=== PATIENT | female | born 1935 | race Caucasian/White ===

== ENCOUNTER 2016-08-27 01:55 | Inpatient (IN) | payer MEDICARE ==
[~2016-08-27] VITALS: Ht 167.6 cm; Wt 66.7 kg
--- NOTE | 2016-08-28 01:26 | ER ---
ADMIT: 08/27/2016 RM/LOC: 503 [facility] MR#: [id number] [address] [address] JANELL SANDY [address] [place] [address] Emergency Room Report SEX: F AGE: 80 : 1935 DATE: 08/27/2016 TIME: 0155 hours. Please refer to my T-sheet for complete H and P. HISTORY OF PRESENT ILLNESS: Briefly, the patient is a 80-year-old, seen over in [place] for fall, left hip fracture. She apparently has a history of severe dementia. Her takes care of her. She fell earlier in the day, he put her in bed, then he could not get her to put any weight on her bed. She is nonverbal due to her dementia. PHYSICAL EXAMINATION: VITAL SIGNS: Her blood pressure is 164/96, pulse 95, respirations 18, temp 99.5, sat 95%. GENERAL: No acute distress. HEENT: Grossly normal. LUNGS: Clear. HEART: Regular. ABDOMEN: Soft. EXTREMITIES: Her left leg is shortened and externally rotated. Pain with any range of motion. NEURO: She does not answer any questions. Smiles. EMERGENCY DEPARTMENT COURSE: Her CBC was normal. Chemistries normal except sodium 147, glucose 134. Coags were normal. Chest x-ray showed no acute findings. Her pelvis and left hip revealed a femoral neck fracture. EKG is sinus rhythm, rate 93, no changes. I did titrate pain medications as needed. I talked to Dr. Tinoco and Dr. Jaimes. We will admit to the hospital. ASSESSMENT: 1. Left femoral neck fracture. 2. Fall. 3. Severe dementia. PLAN: Admit to the hospital. Stef Pierre MD/ messi JOB #: [id number] CC: Ibrahima Tinoco MD, Attending Physician JOSE MIGUEL Alvarado, Family Physician
--- NOTE | 2016-08-29 16:58 | HP ---
ADMIT: 08/27/2016 RM/LOC: 503 [facility] MR#: [id number] [id number] [address] JANELL SANDY [address] [place] [address] History and Physical SEX: F AGE: 80 : 1935 DATE OF SERVICE: CHIEF COMPLAINT: Fall with hip pain. HISTORY OF PRESENT ILLNESS: This is a 80-year-old female. She has a history of dementia. She presented after a fall yesterday morning. Her helped her get into bed, but then later in the day, she was unable to get out of bed also because of her severe pain, so she was transported to the emergency room in [place]. There x-rays confirmed a left femoral neck fracture and she was set up for transfer to [place] for surgical intervention. She has a past medical history for dementia, PEs in the past. Currently, not on any anticoagulation. She has had urinary incontinence in the past as well. She can really give me no history. Her daughters and POA are in the room and we discussed her care. They have some concerns about whether to go through surgery or not given her overall dementia, but given she has severe pain with any type of movement, we discussed I think it is reasonable clearly from a pain control perspective. She denies any specific complaints to me right now. FAMILY HISTORY: Reviewed but noncontributory. SOCIAL HISTORY: She does not drink. She does not smoke. She is . REVIEW OF SYSTEMS: Other complete review of systems were obtained and negative except as above. PHYSICAL EXAMINATION: VITAL SIGNS: Blood pressures were 170s/90s, oxygen saturation 93% on 1 L oxygen by nasal cannula, heart rate 93, respirations 14. GENERAL: This is a well-appearing, 80-year-old female. She is in no apparent distress. She is alert, not oriented. HEENT: Pupils are equal, round, and reactive to light and accommodation. Her extraocular muscles are intact. Her throat is clear. NECK: Supple. Trachea midline. Thyroid not palpable. HEART: Regular rate and rhythm. LUNGS: Clear to auscultation bilaterally. ABDOMEN: Soft without any tenderness. EXTREMITIES: Lower extremity; left lower extremity is shortened and externally rotated. She has normal sensation in all extremities. Peripheral pulses and radial pulses are normal. LABORATORY AND X-RAY DATA: X-ray again showed a left femoral neck fracture. She had a urine that showed positive nitrites, and leukocyte esterase, and white cells. ASSESSMENT: ADMIT: 08/27/2016 RM/LOC: 503 [facility] MR#: [id number] [id number] [address] JANELL SANDY [address] [place] [address] History and Physical SEX: F AGE: 80 : 1935 1. Left femoral neck fracture. 2. Dementia. 3. Urinary tract infection. 4. History of a deep vein thrombosis. PLAN: She is admitted. I will treat her for UTI. I will go ahead and proceed with surgery later today. She is at moderate risk for moderate-risk procedure. EKG showed sinus rhythm, some nonspecific repolarization changes. Possible prolonged QT. We will keep an eye on this and follow her lytes closely. Had a nice discussion with her family regarding the risks and benefits of surgery and overall care and they understand very well. I will have social work help them with their decision-making process. Fredy Jaimes MD/ messi JOB #: [id number] CC: Fredy Jaimes, Attending Physician Alli Hampton, Family Physician
[2016-08-31] MEDS ORDERED: XARELTO10 MG PO (16:44)
[2016-08-31] MEDS ORDERED: SENOKOT DPS8.6 MG PO (16:44)
[2016-08-31] MEDS ORDERED: NORCO 5-325 TA1 EACH PO (16:44)
[2016-08-31] MEDS ORDERED: OMNICEF DPS300 MG PO (16:44)
[2016-08-31] MEDS ORDERED: MAALOX DPS30 ML PO ×2 (16:45)
[2016-08-31] MEDS ORDERED: MILK OF MAGNESI10 ML PO (16:45)
[2016-08-31] MEDS ORDERED: DULCOLAX-DPS10 MG PR (16:46)
[2016-08-31] MEDS ORDERED: TYLENOL DPS325 MG PO (16:46)
--- NOTE | 2016-09-02 13:58 | OR ---
ADMIT: 08/27/2016 RM/LOC: 503 [facility] MR#: [id number] [address] [address] JANELL SANDY [address] [place] [address] Operative/Delivery Room Report SEX: F AGE: 80 : 1935 SURGERY DATE: 08/27/2016 SURGEON: Ibrahima Tinoco MD PREOPERATIVE DIAGNOSE: Left displaced femoral neck fracture. POSTOPERATIVE DIAGNOSE: Left displaced femoral neck fracture. PROCEDURE PERFORMED: Left hip bipolar placement using a DePuy system, size 5 press-fit fracture stem. We used a +5 neck length on a 52 outer diameter bipolar head. MILLWRIGHT SUPERVISOR: JOSE MIGUEL Hester. ANESTHESIA: General. ESTIMATED BLOOD LOSS: 100 mL. FLUIDS: Per anesthetic record. COMPLICATIONS: None. TOURNIQUET TIME: None. CONDITION ON DISCHARGE: The patient returned to the recovery room in fair condition. INDICATIONS: The patient sustained a left femoral neck fracture. The family desires surgical intervention. They understood the risks and benefits of procedure which include, but not limited to, fracture, DVT, dislocations, infection, etc, and desired to proceed. DESCRIPTION OF THE PROCEDURE: The patient was taken to the OR, underwent general anesthesia, transferred to the OR table and laid in a right lateral decubitus position. All bony prominences were well padded. Axillary roll was placed. The left hip was prepped and draped in the usual sterile fashion. I used a skin knife and made an 8 inch incision centered over the greater trochanter through skin and subcutaneous tissue. Bleeders were coagulated with a Bovie. I split the IT band and gluteus marni fascia line with skin incision using Metzenbaum scissors. The gluteus marni fibers were split in line with the fibers bluntly. Charnley retractor was then placed. The patient's abductors had significant degeneration and osteophytes along the greater tuberosity. I removed the osteophytes using a rongeur. External rotators were identified, tagged, cut, and reflected posteriorly. The capsule was T'ed and reflected superiorly and inferiorly. I then removed the femoral head and cut the femoral neck at a 45 degree angle to the long axis of the femoral shaft one fingerbreadth above the lesser trochanter. I then sequentially reamed and broached up to a size 5 trial components, +5 neck and a 52 bipolar head gave excellent range of motion, stability, thus trial ADMIT: 08/27/2016 RM/LOC: 503 [facility] MR#: [id number] [address] [address] [facility] [address] [place] [address] Operative/Delivery Room Report SEX: F AGE: 80 : 1935 components were then removed. The hip was thoroughly irrigated with bacitracin solution. Any debridement removed from the hip joint. I then impacted the prosthesis and reduced the hip. I then closed the capsule using #1 Vicryl. External rotators were reattached to the piriformis fossa through drill holes. I repaired the abductors over the greater trochanter using #1 Vicryl in an interrupted fashion where they had degenerative tears. I then closed the IT band using #1 Vicryl, the vastus lateralis fascia using #1 Vicryl. Subcutaneous tissue closed using 2-0 Vicryl. Skin closed using rosario. Wounds were washed, dried, dressed with sterile Adaptic, 4x4s, ABD, and Medipore tape. Drapes were removed. The patient was placed in a knee immobilizer. Reversed from general anesthesia, transferred back to the recovery room in fair condition. Ibrahima Tinoco MD/ messi JOB #: [id number] CC: Fredy Jaimes, Attending Physician Alli Hampton, Family Physician
--- NOTE | 2016-09-02 13:58 | CO ---
ADMIT: 08/27/2016 RM/LOC: 503 [facility] MR#: [id number] [id number] [address] JANELL SANDY [address] [place] [address] Consultation SEX: F AGE: 80 : 1935 DATE OF CONSULTATION: 08/27/2016 ATTENDING PHYSICIAN: Fredy Jaimes CONSULTING PHYSICIAN: Ibrahima Tinoco MD SUBJECTIVE: The patient is a 80-year-old white female, a care home patient, with some dementia, who fell last night, was seen in the [place] ER, and x-rays showed a left hip fracture. She was transferred to [facility]. She does have again some dementia. PHYSICAL EXAMINATION: Shows the patient's left lower extremity is shortened and externally rotated. Complains of pain in the groin. Otherwise, neurovascularly appears to be intact. IMAGING: X-rays showed displaced femoral neck fracture. ASSESSMENT AND PLAN: Left displaced femoral neck fracture. At this point in time, I will plan a left hip bipolar as long as family okays this. I went over with risks and benefits of surgical intervention. They understand everything. They want to talk with Dr. Jaimes about her ability to undergo surgery. Ibrahima Tinoco MD/ messi JOB #: [id number] CC: Fredy Jaimes, Attending Physician Alli Hampton, Family Physician
--- NOTE | 2016-09-13 09:01 | DS ---
ADMIT: 08/27/2016 RM/LOC: 503 [facility] MR#: [id number] [address] [address] JANELL SANDY [address] [place] [address] General Discharge Summary SEX: F AGE: 80 : 1935 ADMISSION DATE: 08/27/2016 DISCHARGE DATE: 08/30/2016 FINAL DIAGNOSES: 1. Left femoral neck fracture status post repair. 2. Dementia. 3. Urinary tract infection. 4. History of deep venous thrombosis. REASON FOR ADMISSION: See dictated H and P, but briefly, this is a 80-year- old female with dementia who had a fall and was found to have a femoral neck fracture. She was admitted then planned to go undergo surgery later in the day with Orthopedics. This was done on the and she went through surgery without difficulty. Hemoglobin decreased mildly to 9.1. Initially she had some hypernatremia. She had urine with positive nitrites, 2+ blood, 3+ leukocyte esterase. The culture showed multiple organisms, this was treated as a urinary tract infection on admission. She did well throughout her hospitalization, had very minimal pain, was using a little bit hydrocodone, was set up to discharge on the to her skilled care facility. Usually gets her care over in [place]. Fredy Jaimes MD/ messi JOB #: [id number] CC: Fredy Jaimes MD, Attending Physician JOSE MIGUEL Alvarado, Family Physician JOSE MIGUEL Alvarado
[2016-10-24] MEDS ORDERED: MIRALAX PACKET17 GM PO (15:14)
[2016-10-24] MEDS ORDERED: PROTONIX40 MG PO (15:14)
[2016-10-24] MEDS ORDERED: MOVANTIK25 MG PO (15:14)
[2016-10-24] MEDS ORDERED: REMERON DPS15 MG PO (15:15)
[2016-10-24] MEDS ORDERED: PROCTOZONE-HC 230 GM TP (15:19)
[2016-10-24] MEDS ORDERED: BACTRIM DS TAB1 EACH PO (15:20)
== END 2016-08-30 11:55 | DRG 470 ==
LOC: ER 01:55 → 5MS 03:00
PROVIDERS: ADMIT Internal Medicine
PROC: 0SRS01A Replacement of Left Hip Joint, Femoral Surface with Metal Synthetic Substitute, Uncemented, Open Approach (ICD-10-PCS; principal; 2016-08-27)
DX: S72.002A Fracture of unspecified part of neck of left femur, initial encounter for closed fracture (principal); F03.90 Unspecified dementia, unspecified severity, without behavioral disturbance, psychotic disturbance, mood disturbance, and anxiety; N39.0 Urinary tract infection, site not specified; W18.30XA Fall on same level, unspecified, initial encounter; Z86.711 Personal history of pulmonary embolism; R32 Unspecified urinary incontinence